=== PATIENT | male | born 1970 | race Caucasian/White ===

== ENCOUNTER 2024-10-19 12:46 | Inpatient (IN) | payer MEDICAID ==
[~2024-10-19] VITALS: Ht 175.3 cm; Wt 74.8 kg
[2024-10-19 13:37] LABS: BASOPHILS # (AUTO) 0.1 K/uL (0.0-0.2); BASOPHILS % (AUTO) 0.5 % (0.0-2.0); EOSINOPHILS # (AUTO) 0.1 K/uL (0.0-0.7); EOSINOPHILS % (AUTO) 0.9 % (0.0-6.0); HEMATOCRIT 33 % (39-51); HEMOGLOBIN 11.8 g/dL (13.5-17.5); LYMPHOCYTES # (AUTO) 1.2 K/uL (0.8-4.8); LYMPHOCYTES % (AUTO) 10.8 % (20.0-44.0); MEAN CORPUSCULAR HEMOGLOBIN 32 PG (26.0-33.0); MEAN CORPUSCULAR HGB CONC 35 g/dl (31.0-36.0); MEAN CORPUSCULAR VOLUME 91 fL (80-96); MONOCYTES # (AUTO) 1.2 K/uL (0.1-1.30); MONOCYTES % (AUTO) 10.9 % (2.0-12.0); NEUTROPHILS # (AUTO) 8.3 K/uL (1.8-8.9); NEUTROPHILS % (AUTO) 76.9 % (43.0-81.0); PLATELET COUNT (AUTO) 340 K/uL (150-450); RED BLOOD CELL COUNT(AUTO) 3.66 MIL/uL (4.5-6.0); RED CELL DISTRIBUTION WIDTH 14.5 % (11.5-15.0); WHITE BLOOD COUNT (AUTO) 10.8 K/uL (4.3-11.0)
[2024-10-19] MEDS ORDERED: ENOX40DI SQ (13:40)
[2024-10-19] MEDS ORDERED: LANS30CA56 GT (13:40)
[2024-10-19] MEDS ORDERED: ACET160L44 GT (13:40)
[2024-10-19] MEDS ORDERED: GUAI100S69 GT (13:40)
[2024-10-19] MEDS ORDERED: BISA10SU11 RC (13:40)
[2024-10-19] MEDS ORDERED: LACO10SO GT (13:40)
[2024-10-19] MEDS ORDERED: ALBU2.5V38 IH (13:40)
[2024-10-19] MEDS ORDERED: SENN-261 GT (13:40)
[2024-10-19] MEDS ORDERED: CHLO473M5 PO (13:40)
[2024-10-19] MEDS ORDERED: LACT-96 GT (13:40)
[2024-10-19] MEDS ORDERED: DIVA125C2 GT (13:40)
[2024-10-19] MEDS ORDERED: DOCU100C36 GT (13:40)
[2024-10-19] MEDS ORDERED: LEVE500S9 GT (13:40)
[2024-10-19] MEDS ORDERED: LORA-258 GT (13:40)
[2024-10-19] MEDS ORDERED: AMLO-212 GT (13:40)
[2024-10-19] MEDS ORDERED: HYDR100T27 GT (13:40)
[2024-10-19] MEDS ORDERED: METO50TA16 GT (13:40)
[2024-10-19] MEDS ORDERED: ONDA4TAB5 GT (13:40)
[2024-10-19] MEDS ORDERED: GLYC2TAB21 GT (13:40)
[2024-10-19] MEDS ORDERED: POLY17PO4 GT (13:40)
[2024-10-19] MEDS ORDERED: LISI40TA13 GT (13:40)
[2024-10-19] MEDS ORDERED: PHEN125O9 GT (13:40)
[2024-10-19] MEDS ORDERED: OXYC5TAB3 GT (13:40)
[2024-10-19 13:42] LABS: CARBON DIOXIDE 28 mmol/L (21-32); CHLORIDE 100 mmol/L (98-107); CREATININE 0.5 mg/dL (0.6-1.3); GLUCOSE 102 mg/dL (74-106); POTASSIUM 4.1 mmol/L (3.5-5.1); SODIUM SERUM 137 mmol/L (136-145); UREA NITROGEN, BLOOD 7 mg/dL (7-18)
[2024-10-19 13:43] LABS: APPEARANCE,URINE CLEAR (CLEAR); BILIRUBIN,URINE NEGATIVE (NEGATIVE); BLOOD, URINE 2+ Ery/uL (NEGATIVE); COLOR,URINE YELLOW (YELLOW); KETONES,URINE NEGATIVE (NEGATIVE); LEUKOCYTE ESTERASE ,URINE 2+ (NEGATIVE); NITRITE, URINE POSITIVE (NEGATIVE); PROTEIN,URINE 2+ mg/dl (NEGATIVE); UGLUCOSE NEGATIVE (NEGATIVE)
[2024-10-19 13:44] LABS: SERUM AMMONIA 69 umol/L (11-32)
[2024-10-19 13:48] LABS: ALANINE AMINOTRANSFERASE 19 U/L (12-78); ALBUMIN 3.1 g/dL (3.4-5.0); ALCOHOL, BLOOD < 3 mg/dL (0-10); ALKALINE PHOSPHATASE 137 U/L (46-116); ASPARTATE AMINOTRANSFERASE 17 U/L (15-37); BILIRUBIN,DIRECT 0.2 mg/dL (0.0-0.2); BILIRUBIN,TOTAL 0.5 mg/dL (0.2-1.0); INR 1.12 (0.91-1.10); PARTIAL THROMBOPLASTIN TIME 31.9 SEC (24.3-34.3); PROTHROMBIN TIME 11.8 SECS (9.2-11.1); TOTAL PROTEIN, SERUM 8.5 g/dL (6.4-8.2)
[2024-10-19 13:49] LABS: AMPHETAMINE, URINE NEGATIVE (NEGATIVE); BARBITURATE, URINE NEGATIVE (NEGATIVE); BENZODIAZEPINE, URINE NEGATIVE (NEGATIVE); CANNABINOID, URINE NEGATIVE (NEGATIVE); COCCAINE, URINE NEGATIVE (NEGATIVE); OPIATE, URINE NEGATIVE (NEGATIVE); PHENCYCLIDINE SCREEN,URINE NEGATIVE (NEGATIVE)
[2024-10-19 13:49] LABS: ACETAMINOPHEN <10 ug/ml (10-30); SALICYLATE 0.5 mg/dL (2.8-20.0)
[2024-10-19 13:55] LABS: ADD URINE CULTURE YES; BACTERIA,URINE Moderate /HPF (None Seen); MUCUS,URINE Few /LPF (None Seen); RBC,URINE 21-50 /HPF (0-2); SPERM,URINE Present /HPF (None Seen); SQUAMOUS EPITHELIAL CELL,UR 0-2 /HPF (None Seen); WBC,URINE 21-50 /HPF (0-3)
[2024-10-19] MEDS ORDERED: CEFTRIAXONE 1GM BAG (ER ONLY) 50 ML IV ONE (14:14)
[2024-10-19] MEDS ORDERED: LACTULOSE 10 G/15 ML UDC (PYXIS) ONE (14:15)
[2024-10-19] MEDS: LACTULOSE 10 G/15 ML UDC (PYXIS) GT ONE (14:41)
[2024-10-19] MEDS: CEFTRIAXONE 1GM BAG (ER ONLY) 1 GM/50 ML PIGGYBACK IV ONE (14:42)
[2024-10-19] MEDS ORDERED: MAGNESIUM HYDROXIDE 30 ML UDC PO PRN (16:00)
[2024-10-19] MEDS ORDERED: Medication Not On Formulary EA (Acetaminophen 20 ML) GT PRN (16:00)
[2024-10-19] MEDS ORDERED: ONDANSETRON HCL/PF 4 MG/2 ML VIAL IVP PRN (16:00)
[2024-10-19] MEDS ORDERED: BISACODYL SUPP (10 MG) 10 MG/SUPP.RECT SUPP.RECT RC PRN (16:00)
[2024-10-19] MEDS ORDERED: MAG HYDROX/AL HYDROX/SIMETH 30 ML UDC PO PRN (16:00)
[2024-10-19] MEDS ORDERED: LORAZEPAM 0.5 MG TABLET GT PRN (16:00)
[2024-10-19] MEDS ORDERED: ONDANSETRON 4 MG TAB.RAPDIS GT PRN (16:00)
[2024-10-19] MEDS ORDERED: Z GUARD REMEDY 4 OZ OINT TP PRN (16:00)
[2024-10-19] MEDS ORDERED: GUAIFENESIN 300 MG/15 ML UDC GT PRN (16:00)
[2024-10-19] MEDS ORDERED: oxyCODONE IR immediate release 5 MG TABLET GT PRN (16:30)
[2024-10-19] MEDS: PHENYTOIN SUSP UDC 100 MG/4 ML UDC GT SCH (17:53)
[2024-10-19] MEDS: ENOXAPARIN SODIUM 40 MG/0.4 ML DISP.SYRIN SQ SCH (17:53)
[2024-10-19] MEDS: METOPROLOL TARTRATE 50 MG TABLET GT SCH (17:54)
[2024-10-19] MEDS: LEVETIRACETAM SOL (5 ML) 100 MG/ML UDC GT SCH (17:54)
[2024-10-19] MEDS: GLYCOPYRROLATE 1 MG TABLET GT SCH (17:54)
[2024-10-19] MEDS: LISINOPRIL (20MG) 20 MG TABLET GT SCH (17:55)
[2024-10-19] MEDS: LACOSAMIDE ORAL SOLN 50 MG/5 ML UDC GT SCH (17:55)
[2024-10-19] MEDS ORDERED: JEVITY 1.5 CAL LIQUID 1,000 ML BOTTLE GT SCH (18:00)
[2024-10-19 19:42] VITALS: O2SAT 99
[2024-10-19] MEDS: ALBUTEROL FS 2.5 MG/3 ML VIAL.NEB IH SCH (19:42)
[2024-10-19 19:55] VITALS: O2SAT 99
[2024-10-19] MEDS: CHLORHEXIDINE GLUCONATE 15 ML UDC MM SCH (21:00)
[2024-10-19] MEDS: SENNOSIDES 8.6 MG TABLET GT SCH (22:57)
[2024-10-19] MEDS: DIVALPROEX SODIUM 125 MG CAP.SPRINK GT SCH (22:58)
[2024-10-19] MEDS: LACTULOSE 10 G/15 ML UDC (PYXIS) GT SCH (22:58)
[2024-10-19] MEDS: POLYETHYLENE GLYCOL 3350 17 GM POWD.PACK GT SCH (23:00)
[2024-10-19] MEDS: hydrALAZINE HCL 25 MG TABLET GT SCH (23:00)
[2024-10-20] VITALS (9 sets, daily range): BP systolic 102–153; BP diastolic 72–87; TEMP 98.1–99.1; O2SAT 96–100
[2024-10-20] MEDS ORDERED: JEVITY 1.5 CAL LIQUID 1,000 ML BOTTLE GT PRN (02:30)
[2024-10-20 07:15] LABS: BASOPHILS # (AUTO) 0.1 K/uL (0.0-0.2); BASOPHILS % (AUTO) 0.7 % (0.0-2.0); EOSINOPHILS % (AUTO) 0.1 % (0.0-6.0); HEMATOCRIT 34 % (39-51); HEMOGLOBIN 11.7 g/dL (13.5-17.5); LYMPHOCYTES % (AUTO) 8.6 % (20.0-44.0); MEAN CORPUSCULAR HEMOGLOBIN 31 PG (26.0-33.0); MEAN CORPUSCULAR HGB CONC 34 g/dl (31.0-36.0); MEAN CORPUSCULAR VOLUME 92 fL (80-96); MONOCYTES # (AUTO) 1.6 K/uL (0.1-1.30); MONOCYTES % (AUTO) 12.8 % (2.0-12.0); NEUTROPHILS # (AUTO) 9.5 K/uL (1.8-8.9); NEUTROPHILS % (AUTO) 77.8 % (43.0-81.0); PLATELET COUNT (AUTO) 323 K/uL (150-450); RED BLOOD CELL COUNT(AUTO) 3.74 MIL/uL (4.5-6.0); RED CELL DISTRIBUTION WIDTH 14.4 % (11.5-15.0); WHITE BLOOD COUNT (AUTO) 12.1 K/uL (4.3-11.0)
[2024-10-20] MEDS: PANTOPRAZOLE 40 MG TABLET.DR PO SCH (07:30)
[2024-10-20 07:51] LABS: CALCIUM, SERUM 9.7 mg/dL (8.5-10.1); CREATININE 0.5 mg/dL (0.6-1.3); MAGNESIUM 1.5 mg/dL (1.8-2.4); POTASSIUM 3.9 mmol/L (3.5-5.1)
[2024-10-20] MEDS: ACETAMINOPHEN 650 MG/20.3 ML UDC GT PRN (09:30)
[2024-10-20] MEDS: DOCUSATE SODIUM LIQ 100 MG/10 ML UDC GT SCH (09:30)
[2024-10-20] MEDS: AMLODIPINE BESYLATE 5 MG TABLET GT SCH (09:31)
[2024-10-20] MEDS: PANTOPRAZOLE 40 MG/PACK PACK NG SCH (09:31)
[2024-10-20] MEDS: CEFTRIAXONE 1 G in IV D5W 50 ML IV SCH (09:38)
[2024-10-20] MEDS: MAGNESIUM OXIDE 400 MG TABLET PO ONE (13:58)
[2024-10-21] VITALS (9 sets, daily range): BP systolic 118–138; BP diastolic 74–92; TEMP 98.7–98.8; O2SAT 95–100
[2024-10-21 07:57] LABS: BASOPHILS # (AUTO) 0.1 K/uL (0.0-0.2); BASOPHILS % (AUTO) 0.8 % (0.0-2.0); EOSINOPHILS # (AUTO) 0.1 K/uL (0.0-0.7); EOSINOPHILS % (AUTO) 1.2 % (0.0-6.0); HEMATOCRIT 34 % (39-51); HEMOGLOBIN 11.9 g/dL (13.5-17.5); LYMPHOCYTES # (AUTO) 1.4 K/uL (0.8-4.8); LYMPHOCYTES % (AUTO) 15.1 % (20.0-44.0); MEAN CORPUSCULAR HEMOGLOBIN 32 PG (26.0-33.0); MEAN CORPUSCULAR HGB CONC 35 g/dl (31.0-36.0); MEAN CORPUSCULAR VOLUME 92 fL (80-96); MONOCYTES # (AUTO) 1.5 K/uL (0.1-1.30); MONOCYTES % (AUTO) 15.9 % (2.0-12.0); NEUTROPHILS # (AUTO) 6.3 K/uL (1.8-8.9); PLATELET COUNT (AUTO) 286 K/uL (150-450); RED BLOOD CELL COUNT(AUTO) 3.73 MIL/uL (4.5-6.0); RED CELL DISTRIBUTION WIDTH 14.3 % (11.5-15.0); WHITE BLOOD COUNT (AUTO) 9.4 K/uL (4.3-11.0)
[2024-10-21 09:43] LABS: CALCIUM, SERUM 9.4 mg/dL (8.5-10.1); CREATININE 0.4 mg/dL (0.6-1.3); POTASSIUM 4.2 mmol/L (3.5-5.1)
[2024-10-21 11:17] LABS: EOSINOPHILS % (MANUAL) 3 % (0-4); LYMPHOCYTES % (MANUAL) 14 % (16-48); MONOCYTES % (MANUAL) 12 % (0-11.0); NEUTROPHILS % (MANUAL) 71 (42-76)
[2024-10-21 11:18] LABS: ANISOCYTOSIS 1+; PLATELET ESTIMATE ADEQUATE
[2024-10-21] MEDS ORDERED: ENOX40DI SQ (12:08)
[2024-10-21] MEDS ORDERED: LACT-96 GT (12:08)
[2024-10-21] MEDS ORDERED: CEFT1VIA15 IV (12:08)
[2024-10-21] MEDS ORDERED: LACT10SO58 GT (12:08)
== END 2024-10-21 15:40 ==
LOC: ER 12:50 → MEDSG1 15:55
PROVIDERS: ADMIT Nurse Practitioner Family; ATTEND Nurse Practitioner Family
DX: K76.82 Hepatic encephalopathy (principal); I62.02 Nontraumatic subacute subdural hemorrhage; D68.59 Other primary thrombophilia; J96.10 Chronic respiratory failure, unspecified whether with hypoxia or hypercapnia; E46 Unspecified protein-calorie malnutrition; E88.09 Other disorders of plasma-protein metabolism, not elsewhere classified; D63.8 Anemia in other chronic diseases classified elsewhere; G40.909 Epilepsy, unspecified, not intractable, without status epilepticus; Z86.73 Personal history of transient ischemic attack (TIA), and cerebral infarction without residual deficits; Z86.69 Personal history of other diseases of the nervous system and sense organs; N39.0 Urinary tract infection, site not specified; Z87.09 Personal history of other diseases of the respiratory system; Z93.1 Gastrostomy status; Z79.01 Long term (current) use of anticoagulants; Z79.899 Other long term (current) drug therapy; Z79.51 Long term (current) use of inhaled steroids; R13.10 Dysphagia, unspecified; B96.89 Other specified bacterial agents as the cause of diseases classified elsewhere; E83.42 Hypomagnesemia; I10 Essential (primary) hypertension; I62.03 Nontraumatic chronic subdural hemorrhage
CPT/HCPCS: 36415; 70450-TC; 71045-TC; 80048-TC; 80076-TC; 81001; 82040-TC; 82140-TC; 82962-TC; 83735-TC; 84100-TC; 85025-TC; 85730-TC; 87081-TC; 87086-TC; 87186-TC; 94762-TC; 94799-TC; G0378; G0480; J0696; J1650; J1953; J7050; J7060

== ENCOUNTER 2024-12-25 18:48 | Emergency (ER) | payer MEDICAID ==
[~2024-12-25] VITALS: Ht 172.7 cm; Wt 88.5 kg
[~2024-12-25 18:48] MED LIST: ACET160L44 GT; ALBU2.5V38 IH; AMLO-212 GT; BISA10SU11 RC; CEFT1VIA15 IV; CHLO473M5 PO; DIVA125C2 GT; DOCU100C36 GT; ENOX40DI SQ; GLYC2TAB21 GT; GUAI100S69 GT; HYDR100T27 GT; LACO10SO GT; LACT-96 GT; LACT10SO58 GT; LANS30CA56 GT; LEVE500S9 GT; LISI40TA13 GT; LORA-258 GT; METO50TA16 GT; ONDA4TAB5 GT; OXYC5TAB3 GT; PHEN125O9 GT; POLY17PO4 GT; SENN-261 GT
[2024-12-25 20:26] VITALS: BP 96/62; TEMP 98.4; O2SAT 93
== END 2024-12-26 ==
LOC: ER 18:52
DX: S00.83XA Contusion of other part of head, initial encounter (principal); G40.909 Epilepsy, unspecified, not intractable, without status epilepticus; Z79.01 Long term (current) use of anticoagulants; Z79.899 Other long term (current) drug therapy; W18.39XA Other fall on same level, initial encounter; Y93.89 Activity, other specified; Y92.89 Other specified places as the place of occurrence of the external cause; Y99.8 Other external cause status
CPT/HCPCS: 70450-TC

== ENCOUNTER 2025-05-27 18:05 | Emergency (ER) | payer OTHER ==
[~2025-05-27] VITALS: Ht 172.7 cm; Wt 91.2 kg
[2025-05-27] MEDS ORDERED: ALBUTEROL FS 2.5 MG/3 ML VIAL.NEB ONE (18:28)
[2025-05-27] MEDS ORDERED: IPRATROPIUM NEB FS 0.5 MG/2.5 ML AMPUL.NEB ONE (18:28)
[2025-05-27 18:31] VITALS: O2SAT 95
[2025-05-27] MEDS: ALBUTEROL FS 2.5 MG/3 ML VIAL.NEB NEB ONE (18:31)
[2025-05-27] MEDS: IPRATROPIUM NEB FS 0.5 MG/2.5 ML AMPUL.NEB NEB ONE (18:31)
[2025-05-27 18:41] LABS: PLATELET COUNT (AUTO) 383 K/uL (150-450); RED BLOOD CELL COUNT(AUTO) 3.82 MIL/uL (4.5-6.0); RED CELL DISTRIBUTION WIDTH 13.2 % (11.5-15.0); WHITE BLOOD COUNT (AUTO) 7.7 K/uL (4.3-11.0)
[2025-05-27 18:46] VITALS: O2SAT 98
[2025-05-27 18:48] LABS: CALCIUM, SERUM 8.7 mg/dL (8.5-10.1); CREATININE 0.6 mg/dL (0.6-1.3); SERUM AMMONIA 66 umol/L (11-32); SODIUM SERUM 128 mmol/L (136-145); UREA NITROGEN, BLOOD 12 mg/dL (7-18)
[2025-05-27 18:54] LABS: ASPARTATE AMINOTRANSFERASE 9 U/L (15-37); TOTAL PROTEIN, SERUM 7.7 g/dL (6.4-8.2)
[2025-05-27 18:59] LABS: NT-PRO BNP 92 pg/mL (0-125)
[2025-05-27] MEDS ORDERED: LACTULOSE 10 G/15 ML UDC (PYXIS) ONE (19:56)
[2025-05-27] MEDS ORDERED: IOHEXOL-350 100 ML VIAL IV ONE (19:59)
[2025-05-27] MEDS ORDERED: IV NS 0.9% 250 ML IV ONE (19:59)
[2025-05-27] MEDS ORDERED: CT SWABBABLE VALVE TRANS SET 1 EA INFUS.SET MC ONE (19:59)
[2025-05-27] MEDS: LACTULOSE 10 G/15 ML UDC (PYXIS) GT ONE (20:30)
[2025-05-27 23:23] VITALS: BP 110/65; TEMP 98; O2SAT 98
[2025-05-28 11:19] LABS: FRACTIONATED INSPIRED OXYGEN-V 21.0 %; VBG BASE EXCESS 2.3 mmol/L (-2.0-3.0); VBG HCO3 27.8 mmol/L (22.0-29.0); VBG MetHb 0.5 % (0.5-1.5); VBG OXYGEN SATURATION 93.5 % (60.0-85.0); VBG PCO2 47.0 mmHg (38.0-54.0); VBG PH 7.390 (7.320-7.430); VBG PO2 69.9 mmHg (23.0-48.0); VBG TOTAL HEMOGLOBIN 12.4 G/dL (13.5-17.5)
== END 2025-05-27 23:25 ==
LOC: ER 18:11
DX: R09.81 Nasal congestion (principal); I69.351 Hemiplegia and hemiparesis following cerebral infarction affecting right dominant side; I10 Essential (primary) hypertension; Z79.899 Other long term (current) drug therapy; Z93.1 Gastrostomy status; Z20.822 Contact with and (suspected) exposure to COVID-19
CPT/HCPCS: 99285; 71275; 71045; 87426; 93005; 87804 ×2; 82140; 85025; 80048; 80076; 85378; 36415; 84484 ×2; 83880; 94640; J7050; Q9967